=== PATIENT | male | born 1980 | race Caucasian/White ===

== ENCOUNTER 2022-02-08 13:00 | Emergency (ER) | payer BC, SELFPAY ==
--- NOTE | ~2022-02-08 | XR_ITS ---
EXAMINATION: XR CHEST CLINICAL INFORMATION: Shortness of breath. COMPARISON: None TECHNIQUE: 2 views of the chest were obtained. FINDINGS: No significant abnormality is noted involving the heart, lungs, mediastinum, bony thorax or soft tissues. XR/XR chest 2V IMPRESSION: Unremarkable examination.
[2022-02-08 13:21] VITALS: BP 136/96; PULSE 76; RESP 18; TEMP 36.8; O2SAT 97; BMI 35.0
--- NOTE | 2022-02-08 13:23 | ED.GENADULT ---
HPI - General Adult General Chief complaint: Upper Respiratory Symptoms Stated complaint: sob diff breathing Time Seen by Provider: 02/08/22 16:24 Related Data Previous Rx's Medication Instructions Recorded albuterol sulfate 90 mcg/actuation 2 puff inhalation Q4-6H PRN 02/08/22 aerosol inhaler shortness of breath or wheezing #6.7 grams benzonatate 100 mg capsule 100 mg PO TID PRN cough 5 days #15 02/08/22 caps Allergies Allergy/AdvReac Type Severity Reaction Status Date / Time No Known Allergies Allergy Verified 02/08/22 13:25 REPLACED BY [facility] Social History Social History Advance Directives: No Advance Directives Information Provided: No Physical Exam ED Vital Signs: BMI result Body Mass Index 35.0 Course Course Course Narrative: 41M denies PMH and p/w persistent cough and just completed course of abx from a teled[facility] and now feels worse. Denies feevrs, chills, chest pain, N/V/diarrhea, recent travel, denies smoking cigs/weed. VS Reviewed GEN: NAD HEENT: NC/AT, EOMI/PERRLA, Ears wnl, throat wnl PULM: CTAB, no wheeze/rhonchi/rales CVS: RRR, no murmurs Ext: pink, warm, dry Viral testing CXR Discharge Plan Discharge Clinical Impression: Bronchitis, Near syncope Patient Disposition: Home, Self-Care Instructions: Acute Bronchitis (ED), Near Syncope (ED) Additional Instructions: . EKG, chest x-ray, COVID, RSV, influenza, and blood work came back negative for signs of pneumonia, heart attack, heart failure, or blood clot. Return to the ED immediately any chest pain, leg swelling, calf pain, coughing up blood, fever,, chills, weakness, dizziness, passing out, or any other concerning symptoms Prescriptions: New albuterol sulfate 90 mcg/actuation HFA aerosol inhaler 2 puff inhalation Q4-6H PRN (Reason: shortness of breath or wheezing) Qty: 6.7 0RF benzonatate 100 mg capsule 100 mg PO TID PRN (Reason: cough) 5 Days Qty: 15 0RF Stand Alone Forms: Work/School Release Interventions: ED Discharge Assessment Last Done: 02/08/22 19:32 Discharge Date/Time: 02/08/22 19:33 Print Language: Luxembourger
[2022-02-08 15:12] LABS: Influenza A PCR NEGATIVE (Negative); Influenza B PCR NEGATIVE (Negative); Resp Syncy Virus RNA Qual PCR NEGATIVE (Negative); SARS COV2 PCR INHOUSE NEGATIVE (Negative)
--- NOTE | 2022-02-08 16:32 | ECG_ITS ---
Test Reason : DYSPNEA Blood Pressure : / mmHG Vent. Rate : 067 BPM Atrial Rate : 067 BPM P-R Int : 132 ms QRS Dur : 106 ms QT Int : 414 ms P-R-T Axes : -03 -19 017 degrees QTc Int : 437 ms Normal sinus rhythm Moderate voltage criteria for LVH, may be normal variant ( R in aVL , Marquis product ) Borderline ECG No previous ECGs available Referred By: Jesus Galan Electronically Signed By:JOE CARREON MD
--- NOTE | 2022-02-08 16:48 | ED_ITS ---
HPI - General Adult General Chief complaint: Upper Respiratory Symptoms Stated complaint: sob diff breathing Time Seen by Provider: 02/08/22 16:24 Source: patient Mode of arrival: ambulatory Limitations: no limitations History of Present Illness HPI narrative: 41-year-old male brought presents to ED for coughing with yellow sputum for 10 days. Patient states he completed with antiobitcs. patient states felt like he was bout to pass out due to constant coughing yesterday. patient states he actually never passed out. Patient states chest pain only when he coughs. Patient denies any pleurisy, leg swelling, calf pain, coughing blood, recent long travel, recent surgery, estrogen hormonal use, neuro deficits, slurred speech, facial droop, or headache. Patient main complaint is cough. Related Data Previous Rx's Medication Instructions Recorded albuterol sulfate 90 mcg/actuation 2 puff inhalation Q4-6H PRN 02/08/22 aerosol inhaler shortness of breath or wheezing #6.7 grams benzonatate 100 mg capsule 100 mg PO TID PRN cough 5 days #15 02/08/22 caps Allergies Allergy/AdvReac Type Severity Reaction Status Date / Time No Known Allergies Allergy Verified 02/08/22 13:25 Review of Systems Review of Systems: Cough Yes all other systems are reviewed and are negative [facility] Social History Social History Advance Directives: No Advance Directives Information Provided: No Physical Exam ED Vital Signs: Vital Signs - 24 hr 02/08/22 13:21 02/08/22 16:55 Temperature 98.3 F 99 F Pulse Rate 76 76 Respiratory Rate 18 26 H Blood Pressure 136/96 H 128/85 Pulse Oximetry 97 98 Oxygen Delivery Method Room Air Room Air BMI result Body Mass Index 35.0 Const General: cooperative, healthy appearing, comfortable, no acute distress, well developed, alert, awake and Physically active Orientation/consciousness: oriented to person, oriented to place, oriented to time and patient oriented x3 HENMT Head: Yes normal to inspection, Yes No palpable skull fracture present, Yes normocephalic, Yes atraumatic and No abrasion Eyes General: appearance normal, both eyes and all related structures Neck Neck: Yes normal visual inspection, Yes full ROM, Yes no lymphadenopathy, Yes no meningeal signs, Yes trachea midline, Yes supple, No anterior neck swelling and No tender Chest Chest palpation & inspection: normal inspection of the chest and normal palpation of entire chest wall Resp Effort & Inspection: normal respiratory effort and able to speak in complete sentences Auscultation: clear to auscultation bilaterally Cardio Jugular venous distension: no JVD Heart sounds: S1 normal heart sound present and S2 normal heart sound present GI Inspection: Yes normal to inspection and No abdominal wall ecchymosis Palpation (GI): Soft to palpation, not firm, nontender, no guarding and not rigid General: No CVA tenderness and Yes no CVA tenderness Back/Spine/Pelvis Back: no CVA tenderness, No CVA tenderness and No back tenderness Skin General skin exam: no rashes or lesions noted and elasticity normal Neuro Other: Negative for any neuro deficits General: oriented to person, oriented to place, oriented to time, patient oriented x3, gait normal, tone normal and no meningeal signs Extrem Other: Bilateral lower extremities negative for swelling, pitting edema, calf tenderness General: Yes normal to inspection and Yes full ROM Psych Appearance: grossly normal, well kempt and not disheveled Course Course Course Narrative: Number medical screening was done patient's chest x-ray COVID swab was negative. Due to patient states near syncopal symptoms although he never passed out EKG dimer troponin ordered. Reevaluation(s) Reevaluation #1: EKG negative STEMI. Troponin negative D-dimer negative. Perc score is 0 heart score 0. Patient will be discharged with albuterol inhaler and cough medication. Normal sinus rhythm. Reticular rate 67. Pr interval 132. QRS 106. QTC 437. Negative STEMI. PERC score zero Time: 18:59 Medical Decision Making Medical Decision Making MDM Narrative: 41-year-old male coughing with mckee sputum. Due to patient stating incidental was passed out patient had a cardiac evaluation and dimer. EKG troponin dimer negative. Patient is sleeping comfortably in the bed. SARS a chest x-ray normal. Patient will be discharged with albuterol inhaler and Tessalon Perles Discharge Plan Discharge Clinical Impression: Bronchitis, Near syncope Patient Disposition: Home, Self-Care Instructions: Acute Bronchitis (ED), Near Syncope (ED) Additional Instructions: . EKG, chest x-ray, COVID, RSV, influenza, and blood work came back negative for signs of pneumonia, heart attack, heart failure, or blood clot. Return to the ED immediately any chest pain, leg swelling, calf pain, coughing up blood, fever,, chills, weakness, dizziness, passing out, or any other concerning symptoms Prescriptions: New albuterol sulfate 90 mcg/actuation HFA aerosol inhaler 2 puff inhalation Q4-6H PRN (Reason: shortness of breath or wheezing) Qty: 6.7 0RF benzonatate 100 mg capsule 100 mg PO TID PRN (Reason: cough) 5 Days Qty: 15 0RF Stand Alone Forms: Work/School Release Interventions: ED Discharge Assessment Last Done: 02/08/22 19:32 Discharge Date/Time: 02/08/22 19:33 Print Language: Cameroonian
[2022-02-08 16:55] VITALS: BP 128/85; PULSE 76; RESP 26; TEMP 37.2; O2SAT 98
[2022-02-08 17:01] LABS: MANUAL DIFF FLAG NO
[2022-02-08 17:03] LABS: Basophils Absolute Auto 0.1 X10*3/uL (0.0-0.2); Basophils Percent Auto 1.2 % (0-2); Eosinophils Absolute Auto 0.7 X10*3/uL (0.0-0.4); Eosinophils Percent Auto 5.4 % (0-4); Hematocrit 38.6 % (42.0-52.0); Hemoglobin 13.7 g/dl (14.0-18.0); Imm Gran Abs Auto 0.11 X10*3/uL (0.00-0.03); Imm Gran Pct Auto 0.9 % (0.0-0.4); Lymphocytes Absolute Auto 3.4 X10*3/uL (1.2-4.9); Lymphocytes Percent Auto 28.3 % (20-40); Mean Corpuscular HGB Conc 35.5 g/dl (31.0-36.0); Mean Corpuscular Hemoglobin 29.3 pg (27.0-33.0); Mean Corpuscular Volume 82.7 fL (80.0-98.0); Mean Platelet Volume 8.9 fL (9.4-12.4); Monocytes Absolute Auto 1.1 X10*3/uL (0.1-1.2); Monocytes Percent Auto 9.3 % (2-11); Neutrophils Absolute Auto 6.6 x10*3/uL (2.0-8.3); Neutrophils Percent Auto 54.9 % (45-73); Platelet Count 334 X10*3/uL (160-400); Red Blood Count 4.67 X10*6/uL (4.60-5.80); Red Cell Distribution Width 12.7 % (11.0-16.0); White Blood Count 12.1 X10*3/uL (4.8-10.8)
[2022-02-08 17:11] LABS: INTERNATIONAL NORM RATIO 1.1 (0.9-1.1); Prothrombin Time 12.4 SEC (10.0-13.1)
[2022-02-08 17:13] LABS: Partial Thromboplastin Time 30.2 SEC (26.0-36.4)
[2022-02-08 17:29] LABS: Alanine Aminotransferase 65 U/L (0-40); Albumin Level 4.2 g/dL (3.5-5.0); Alkaline Phosphatase 81 U/L (39-117); Anion Gap 13 (12-20); Aspartate Amino Transferase 33 U/L (5-37); Bilirubin Total 0.9 mg/dL (0.0-1.0); Blood Urea Nitrogen 12 mg/dL (9-16); Calcium 9.2 mg/dL (8.4-10.2); Carbon Dioxide 25 mmol/L (22-29); Chloride 104 mmol/L (96-108); Creatinine Clr Calc Pharmacy 135.9; Estimated Glomerular Filt Rate > 60; Glucose Random 89 mg/dL (60-115); Potassium 3.8 mmol/L (3.3-5.1); Sodium 138 mmol/L (135-145)
[2022-02-08 17:31] LABS: B Type Natriuretic Peptide 10 pg/mL (<100); Troponin-I High Sensitivity < 3.5 ng/L (<3.5-35.0)
[2022-02-08 18:28] LABS: D Dimer High Sensitivity 159 NG/ML
== END 2022-02-08 19:33 | disposition home or self-care (01) ==
PROVIDERS: Physician Assistant; Student in an Organized Health Care Education/Training Program; Emergency Provider Emergency Medicine
DX: J40 Bronchitis, not specified as acute or chronic (principal); R55 Syncope and collapse; R06.02 Shortness of breath; Z20.822 Contact with and (suspected) exposure to COVID-19; Z79.899 Other long term (current) drug therapy
CPT/HCPCS: 0241U; 36415; 71046; 80053; 83880; 84484; 85025; 85379; 85610; 85730; 93005; 99283; 99284